=== PATIENT | female | born 1955 | race Hispanic/Latino ===

== ENCOUNTER 2018-02-13 17:00 | Emergency (ER) | payer OTHER ==
[2018-02-13 17:32] LABS: BASOPHILS % (AUTO) 0.6 % (0.0-5.0); EOSINOPHILS % (AUTO) 0.7 % (0.0-8.0); HEMATOCRIT 44.6 % (36-48); LYMPHOCYTES % (AUTO) 15.4 % (21.0-51.0); MEAN CORPUSCULAR HEMOGLOBIN 32.1 pg (27.0-33.0); MEAN CORPUSCULAR HGB CONC 35.5 g/dL (32.0-36.0); MEAN CORPUSCULAR VOLUME 90.5 fL (79-99); MONOCYTES % (AUTO) 5.3 % (3.0-13.0); PLATELET COUNT (AUTO) 232 K/uL (130-400); RED BLOOD CELL COUNT(AUTO) 4.93 MIL/uL (4.00-5.50); RED CELL DISTRIBUTION WIDTH 13.1 % (11.0-15.5); WHITE BLOOD COUNT (AUTO) 6.5 K/uL (4.8-10.8)
[2018-02-13 17:43] LABS: CREATININE 0.6 mg/dL (0.5-1.5); POTASSIUM 3.8 mmol/L (3.5-5.1)
[2018-02-13 17:52] LABS: INR 0.97 (0.85-1.15); PARTIAL THROMBOPLASTIN TIME 27.8 SEC (26.3-35.5); PROTHROMBIN TIME 10.2 SEC (9.6-11.6)
[2018-02-13 17:57] LABS: ALBUMIN 3.9 g/dL (3.5-5.0); BILIRUBIN,TOTAL 0.6 mg/dL (0.2-1.0); CREATINE KINASE MB 0.6 ng/mL (0.5-3.6); TOTAL PROTEIN, SERUM 7.4 g/dL (6.0-8.3)
[2018-02-13] MEDS ORDERED: ONDANSETRON HCL MDV 20ML 2 MG/ML VIAL ONE (18:28)
[2018-02-13] MEDS ORDERED: SODIUM CHLORIDE 0.9% 1000ML 1,000 ML IV ONE (18:28)
== END 2018-02-13 19:42 | disposition home or self-care (01) ==
LOC: EDH 17:00
DX: E86.0 Dehydration (principal); R19.7 Diarrhea, unspecified; E07.9 Disorder of thyroid, unspecified; R94.31 Abnormal electrocardiogram [ECG] [EKG]
CPT/HCPCS: 36415; 71045; 80053; 82550; 82553; 84484; 85025; 85610; 85730; 93005; 96361; 96374; 99285; J7030

== ENCOUNTER → 2018-03-11 | Outpatient (CLI) | payer OTHER ==
[~2018-03-11] MED LIST: REGADENOSON 0.4 MG/5 ML PF SYG IVP SCH
== END | disposition home or self-care (01) ==
LOC: SHCH 08:28
PROVIDERS: ATTEND Internal Medicine Cardiovascular Disease
DX: R07.9 Chest pain, unspecified (principal)
CPT/HCPCS: 78452; 93017; 96374; A9500 ×2; J2785

== ENCOUNTER → 2018-03-26 | Outpatient (CLI) | payer OTHER | END | disposition home or self-care (01) | LOC: SHCH 14:00 | PROVIDERS: ATTEND Internal Medicine Cardiovascular Disease | DX: R07.9 Chest pain, unspecified (principal) | CPT/HCPCS: 93306 ==

== ENCOUNTER → 2018-03-29 | Outpatient (CLI) | payer OTHER | END | disposition home or self-care (01) | LOC: SHCH 08:53 | PROVIDERS: ATTEND Internal Medicine Cardiovascular Disease | DX: I71.4 Abdominal aortic aneurysm, without rupture (principal) | CPT/HCPCS: 93978 ==

== ENCOUNTER 2025-02-11 20:54 | Observation (INO) | payer MEDICARE ==
[~2025-02-11] VITALS: Ht 157.5 cm; Wt 65.4 kg
[2025-02-11 21:21] LABS: BASOPHILS # (AUTO) 0.06 K/uL (0.00-0.20); BASOPHILS % (AUTO) 0.9 % (0.0-5.0); EOSINOPHILS # (AUTO) 0.22 K/uL (0.00-0.70); EOSINOPHILS % (AUTO) 3.5 % (0.0-8.0); HEMATOCRIT 40.2 % (36-48); IMMATURE GRANULOCYTE ABSOLUTE 0.02 K/uL (0-1); LYMPHOCYTES # (AUTO) 2.4 K/uL (1.0-4.8); LYMPHOCYTES % (AUTO) 38.4 % (21.0-51.0); MEAN CORPUSCULAR HEMOGLOBIN 31.3 pg (27.0-33.0); MEAN CORPUSCULAR HGB CONC 34.3 g/dL (32.0-36.0); MEAN CORPUSCULAR VOLUME 91.2 fL (79-99); MONOCYTES # (AUTO) 0.4 K/uL (0.1-1.0); MONOCYTES % (AUTO) 6.1 % (3.0-13.0); NEUTROPHILS # (AUTO) 3.2 K/uL (1.8-7.7); NEUTROPHILS % (AUTO) 50.8 % (40.0-77.0); PLATELET COUNT (AUTO) 210 K/uL (130-400); RED BLOOD CELL COUNT(AUTO) 4.41 MIL/uL (4.00-5.50); RED CELL DISTRIBUTION WIDTH 12.1 % (11.0-15.5); WHITE BLOOD COUNT (AUTO) 6.4 K/uL (4.8-10.8)
--- NOTE | 2025-02-11 21:21 | ERN ---
ED Note History of Present Illness Stated Complaint: C/O DIZZINESS WITH CHEST TIGHTNESS. Chief Complaint: Dizzy/Light Headed Time Seen by MD: 21:05 Dictation: This is a 69-year-old female who presented to the emergency room with complaints of severe dizziness and chest tightness. Apparently she was seen by PCP and evaluated and was instructed to come to the emergency room should her symptoms persist hence she came in No diaphoresis syncopal episode the chest tightness is mostly in the upper chest and she also stated that her left arm feels heavy. All these symptoms have been going on for more than 3-6 months. She admits to lot of stress at home due to family issues Temperature 97.6 pulse 81 respirations 20 blood pressure 132/80 pulse oximetry 100% on room air Her chronic medical problems include gastritis, gastroesophageal reflux disease, hypercholesterolemia Allergies: Coded Allergies: No Known Drug Allergies (Unverified Allergy, Unknown, 03/05/18) Past Medical History Past Medical History: GERD, High Cholesterol, Other Additional Past Medical Hx: GASTRITIS; SEASONAL ALLERGIES Surgical History: None Family History: Negative Social History: Negative History: Not Applicable RN Note Reviewed/Agreed w/PFSH: Yes Review of System Dictation Constitutional: Negative for fever,chills, and weight loss Eyes: Negative for injury, pain,redness, and discharge ENT: Negative for injury,pain or swelling Cardiovascular: Positive for chest pain, denied palpitations, and edema Respiratory: Negative for shortness of breath, cough, and wheezing, Abdomen/GI: Negative for abdominal pain, nausea, vomiting, diarrhea, and constipation Back: Negative for injury and pain : Negative for injury, bleeding and discharge MS/Extremity: Negative for injury and deformity Skin: Negative for rash, and discoloration Neuro: Negative for headache, weakness, numbness, tingling, and seizure Psych: Negative for suicide ideation, homicidal ideation, and hallucinations Initial Vital Sign VS Vital Signs Date Time Temp Pulse Resp B/P (MAP) Pulse Ox O2 Delivery O2 Flow Rate FiO2 02/11/25 20:56 97.5 81 20 132/80 100 Room Air Physical Exam Dictation General: awake, alert, NAD generally anxious Head/Face: Normocephalic, atraumatic Eyes: PERRL, EOMI, vision at baseline ENT: oral cavity clear, TMs clear, no signs of infection Neck: Trachea midline, supple, no nuchal rigidity Cardiovascular: RRR, normal S1/S2, No MRGs, no JVD Respiratory: CTAB, no respiratory distress, No rales or wheezes Abdomen: Soft, non-tender, non-distended, normal bowel sounds, no guarding or rebound. Skin: Warm, dry, normal turgor, no rash MS/Extremity: Pulses equal, no cyanosis, neurovascular intact, FROM Neuro: COAx4, GCS 15, strength 5/5, CN 2-12 intact, normal cerebellar exam, normal gait, Psych: Normal behavior, mood, and affect normal Extremities-trace edema without any palpable cords, Homans sign is negative Results (Laboratory/Radiology) Laboratory/Radiology Laboratory Tests Test 02/11/25 21:15 White Blood Count 6.4 K/uL (4.8-10.8) Red Blood Count 4.41 MIL/uL (4.00-5.50) Hemoglobin 13.8 g/dL (12.0-16.0) Hematocrit 40.2 % (36-48) Mean Corpuscular Volume 91.2 fL (79-99) Mean Corpuscular Hemoglobin 31.3 pg (27.0-33.0) Mean Corpuscular Hemoglobin Concent 34.3 g/dL (32.0-36.0) Red Cell Distribution Width 12.1 % (11.0-15.5) Platelet Count 210 K/uL (130-400) Mean Platelet Volume 9.8 fL (7.5-10.5) Immature Granulocyte % (Auto) 0.3 % (0-1) Neutrophils (%) (Auto) 50.8 % (40.0-77.0) Lymphocytes (%) (Auto) 38.4 % (21.0-51.0) Monocytes (%) (Auto) 6.1 % (3.0-13.0) Eosinophils (%) (Auto) 3.5 % (0.0-8.0) Basophils (%) (Auto) 0.9 % (0.0-5.0) Neutrophils # (Auto) 3.2 K/uL (1.8-7.7) Lymphocytes # (Auto) 2.4 K/uL (1.0-4.8) Monocytes # (Auto) 0.4 K/uL (0.1-1.0) Eosinophils # (Auto) 0.22 K/uL (0.00-0.70) Basophils # (Auto) 0.06 K/uL (0.00-0.20) Absolute Immature Granulocyte (auto 0.02 K/uL (0-1) Nucleated Red Blood Cells 0.0 % (0.0-0.19) Sodium Level 139 mmol/L (136-145) Potassium Level 3.4 mmol/L (3.5-5.1) L Chloride Level 105 mmol/L (101-111) Carbon Dioxide Level 29 mmol/L (21-32) Blood Urea Nitrogen 17 mg/dL (7-18) Creatinine 0.8 mg/dL (0.5-1.0) Glomerular Filtration Rate Calc 80 mL/min (>90) Random Glucose 127 mg/dL (70-105) H Total Calcium 8.7 mg/dL (8.5-10.1) Total Creatine Kinase 60 U/L (21-232) # Troponin I High Sensitivity 5.7 ng/L (4-50) B-Type Natriuretic Peptide 30 pg/mL (0-100) Labs Reviewed?: Yes EKG Comment: Twelve lead EKG done on 02/11/2025 at 8:57 p.m. showed a heart rate of 70, PA in terval 145, QRS 139, QT/QTC 439/476 Impression normal sinus rhythm with left bundle branch block than the appearance of ST elevations due to severe intraventricular conduction delay. EKG Rhythm strip-normal sinus rhythm with left bundle branch block and i ntraventricular conduction delay. Interpreted by ER MD Dr. Celis Ultrasound Comment: Echocardiogram done in 2018 Left ventricle systolic function is low normal. The Ejection Fraction is 50-55%. Septal motion consistent with conduction abnormality. The left atrium size is normal. The aortic valve is normal in structure and function. The mitral valve is normal in structure and function. The pericardium appears normal. DICTATED BY: EVELIO ALVES II, MD DATE: 03/26/18 1414 ELECTRONICALLY SIGNED BY: EVELIO ALVES II, MD DATE: 03/28/18 0823 ED Course ED Course Orders Procedure Category Date Status Time 12 Lead Ekg Tracing- EKG 02/11/25 Logged Technical 21:01 Vital Signs Per CPOE 02/11/25 Transmitted Routine 21:03 B-Type Natriuretic LAB 02/11/25 Complete Peptide 21:03 Chest 1vw RAD 02/11/25 Taken 21:03 Oxygen By Nc/Pulse Ox CPOE 02/11/25 Transmitted 21:03 Maintain Iv CPOE 02/11/25 Transmitted 21:03 Iv Insertion CPOE 02/11/25 Transmitted 21:03 Cardiac Monitoring CPOE 02/11/25 Transmitted 21:03 Pulse Oximetry With CPOE 02/11/25 Transmitted Vs And Prn 21:03 Cbc With Differential LAB 02/11/25 Complete 21:03 Activity: Br W/Brp CPOE 02/11/25 Transmitted With Assist 21:03 Urinalysis Profile LAB 02/11/25 In Process 21:03 Basic Metabolic Panel LAB 02/11/25 Complete 21:03 Cardiac Panel LAB 02/11/25 Complete 21:15 Vital Signs Date Time Temp Pulse Resp B/P (MAP) Pulse Ox O2 Delivery O2 Flow Rate FiO2 02/11/25 20:56 97.5 81 20 132/80 100 Room Air We will perform diagnostic labs, advanced imaging and administer medications according to the patient's complaint. Once the results are available, will review and personally interpreted the labs to rule out any acute life- threatening emergency the trach require immediate intervention and treatment. I will then re-evaluate the patient after treatment and diagnostic exams have return to determine whether the patient requires any further testing, can safely be discharged home or need further admission to hospital for additional treatment and evaluation. Reviewed labs CBC is with a normal limits BNP 7 shows a potassium of 3.4 glucose 127 brain natriuretic peptide is 30 troponins 1st set is negative. Chest x-ray shows no acute infiltrate some chronic interstitial markings. Being postmenopausal, with an abnormal EKG-left bundle branch block was there in her old EKG but never had a cardiac evaluation done. I recommended admission to the hospital as the symptoms have been going on for months and she needed to be evaluated for ischemic heart disease She was agreeable. 11:57 p.m. patient accepted by [facility] mid-level provider for hospitalist group for admission and further management HEART Score Response (Comments) Value History: Low suspicion (0) 0 EKG: Repolarization changes 1 Age: > 65yrs (+2) 2 Risk Factors: 1-2 risk factors (+1) 1 Initial Troponin: Normal limit (0) 0 HEART Score Risk: Low Risk for MACE (1-3) Total 4 Medical Decision Making MDM MDM: Differential diagnosis: Severe dizziness with chest tightness-could be cardiac, dehydration, cervical spondylosis, benign positional vertigo Rationale: Tests considered and ordered secondary to shared decision making include: labs, ECG and radiology Previous outside records reviewed: Old ER visits. Risk of complication and/or morbidity or mortality of patient management: None Medications-Per medication reconciliation Need for hospitalization: Patient does meet criteria for hospitalization. Need for emergency major/minor surgery: No There are no social concerns with this patient. Prescription drug management Prescriptions will include symptomatic care Patient's prior external medical records from other ER visits were reviewed by me as indicated. Prior testing and results from previous visits were reviewed. Prior tests were taken into account with medical decision making and resource utilization, independent historian/historians were used to obtain complete medical history. I independently interpreted the test that were performed, results were reviewed by me and considered findings on radiology if ordered. Medical management and examination interpretation discussions were had by me with other qualified healthcare professionals as indicated for the patient's care. Problem List Problem List: (1) Unstable angina (2) Abnormal EKG (3) Left bundle branch block DX & DISP Disposition: Inpatient Decision to Admit Time: 23:55 Departure Impression: Primary Impression: Unstable angina Additional Impressions: Abnormal EKG, Left bundle branch block Condition: Stable Additional Instructions: Patient was informed of all the diagnostic labs and procedures conducted in the emergency room today and demonstrated understanding of the results. I personally reviewed and interpreted all the diagnostic exams performed in the ER today. The patient will be admitted to the hospital for further treatment and evaluation. Disposition-admit to facility Condition-stable/guarded Course-uncertain at this time Pain status-decreased Assessment-exam unchanged Admission Certification- I certify that the patients status is appropriate and is based on my best clinical judgment and the patient's condition as documented in the medical records Referrals: NESHA JO DO (PCP) DEBBY CELIS MD Feb 11, 2025 21:21
[2025-02-11 21:40] LABS: B-TYPE NATRIURETIC PEPTIDE 30 pg/mL (0-100); CREATININE 0.8 mg/dL (0.5-1.0); POTASSIUM 3.4 mmol/L (3.5-5.1)
[2025-02-12] VITALS (7 sets, daily range): BP systolic 120–134; BP diastolic 66–81; PULSE 71–87; RESP 18–23; TEMP 97.3–98.7; O2SAT 96–99
[2025-02-12 00:02] LABS: APPEARANCE,URINE CLEAR (CLEAR); BILIRUBIN,URINE NEGATIVE (NEGATIVE); COLOR,URINE LIGHT-YELLOW (YELLOW); GLUCOSE, URINE (UA) NEGATIVE (NEGATIVE); KETONES,URINE NEGATIVE (NEGATIVE); LEUKOCYTE ESTERASE ,URINE NEGATIVE Leu/uL (NEGATIVE); NITRATE,URINE NEGATIVE (NEGATIVE); OCCULT BLOOD,URINE NEGATIVE (NEGATIVE); PROTEIN,URINE NEGATIVE (NEGATIVE); UROBILINOGEN,URINE 0.2 mg/dL (0.2-1.0)
[2025-02-12 00:08] LABS: ADD UA MICROSCOPIC NO
[2025-02-12] MEDS: ASPIRIN 325MG TAB PO ONE (00:34)
[2025-02-12] MEDS: 0.9%NACL 1000ML 1,000 ML IV ONE (00:53)
--- NOTE | 2025-02-12 00:59 | HP ---
[facility] Date of Service: Feb 12, 2025 Time of Service: 00:59 PCP: Dinesh BEST HISTORY OF PRESENT ILLNESS: This is a 69 year old female with past medical history hyperlipidemia,GERD,Gastroparesis and hypothyroidism who present to the ED for complaints of on and off severe dizziness and chest tightness that has been on going for the past 4 months and no other associated symptoms.Patient reports that she has been dealing with a lot of stress lately that she had to transfer her mother to a jail and that she has been taking care of her and that she feels guilty as well and this caused her so much mental stress.Today she has chest pain which she described as tightness and left arm felt heavy she said so she went to see her PCP and did an EKG and was told to come to the ED if if symptoms persist,thus prompted this admission.Patient states she has no cardiac work up and was seen by a solar sales representative and assessor before . Seen and examined patient in the ER awake,alert,coherent and ambulatory.Patient denies headache,fever,chills,nausea,vomiting palpitation and shortness of breath.Patient denies focal neuro deficit. Vital signs temperature 97.5, heart rate 81, blood pressure 132/80 saturation 100% on room air. Labs CBC unremarkable. Potassium 3.4, glucose 127 troponin 5.7 to 8.1 BNP 30. Urinalysis normal . ECG result revealed normal sinus rhythm heart rate 70 with left bundle branch block and intraventricular conduction delay. chest x-ray result is still pending at this time. While in the ER patient received aspirin 325 mg and started on NS at 1:25 a.m. mL/hour. We will admit patient for further medical management. REVIEW OF SYSTEMS CONSTITUTIONAL: Denies fevers, chills, or night sweats. No unintentional weight loss reported. NEUROLOGICAL: Denies headache, amaurosis fugax, motor weakness, sensory deficit, vertigo/spinning sensation, gait abnormalities, or tremors. ENT: No hearing loss, otalgia, otorrhea, rhinitis, rhinorrhea, hoarseness, or sore throat. CARDIOVASCULAR: Complain of chest pain Denies dyspnea on exertion, orthopnea, paroxysmal nocturnal dyspnea, palpitations, life-threatening arrhythmias, claudication. PULMONARY: Denies any shortness of breath, cough, phlegm/sputum, hemoptysis, pleuritic chest pain. SLEEP: Denies morning headaches, daytime somnolence or napping. Denies difficulty falling asleep, staying asleep, waking from sleep. Denies knowledge of snoring. GASTROINTESTINAL: Denies any type of dysphagia to either liquids or solids. Denies nausea, vomiting, pyrosis, early satiety, abdominal pain, diarrhea, constipation, or changes in stool consistency or caliber. Denies coffee-ground emesis, hematemesis, hematochezia, or melanotic stools. GENITOURINARY: Denies frequency, urgency, nocturia, hematuria or incontinence (Storage/Irritative symptoms.) Low urinary stream, straining to void, urinary intermittency or hesitancy, splitting of the voiding stream, terminal dribbling. ENDOCRINOLOGIC: Denies polyuria, polydipsia, polyphagia or heat/cold intolerances. HEMATOLOGIC: Denies thrombophilia/previous clots, or coagulopathy/bleeding disorders. ONCOLOGIC: Denies personal history of malignancy. DERMATOLOGIC: Denies rashes or pruritus. PSYCHIATRIC: Denies any suicidal or homicidal ideation. Denies hallucinations. PAST MEDICAL HISTORY: [ Hyperlipidemia hypothyroidism GERD gastroparesis] PAST SURGICAL HISTORY: [ Patient denies] PAST SOCIAL HISTORY: [Patient lives with . Patient denies alcohol tobacco and recreational drug use ] FAMILY HISTORY: [ Noncontributory ] Coded Allergies: No Known Drug Allergies (Unverified Allergy, Unknown, 03/05/18) PHYSICAL EXAM GENERAL APPEARANCE: The patient is awake, alert, and oriented, in no acute cardiopulmonary distress. NEUROLOGICAL: Cranial nerves II-XII grossly intact. Motor is 5/5 in bilateral upper and lower extremities proximal to distal. No sensory deficits. HEENT: Face is symmetric. Pupils are equal and reactive. Extraocular movements are intact. NECK: Supple. No JVD. No thyromegaly. No submental, submandibular, pre- /postauricular, occipital or supraclavicular lymphadenopathy. CHEST: Normal chest expansion. No Telemetry. LUNGS: Absence of any rales, rhonchi or any wheezing. CARDIOVASCULAR: Regular. S1 and S2 normal. No appreciable rubs, murmurs or gallops. ABDOMEN: Soft, nontender, and nondistended. There is no rebound, voluntary guarding, or rigidity. : Deferred. No [place]. EXTREMITIES: Non-edematous and not cyanotic. No clubbing. Good capillary refill. SKIN: No skin breakdown. Vital Sign (Last 24 Hours) 02/11/25 20:56 Temp 97.5 Pulse 81 Resp 20 B/P (MAP) 132/80 Pulse Ox 100 O2 Delivery Room Air LABS: Laboratory: Test 02/12/25 00:05 02/11/25 23:40 02/11/25 21:15 Range/Units Total Creatine Kinase 58 21-232 U/L Troponin I High Sensitivity 8.1 4-50 ng/L B-Type Natriuretic Peptide 26 0-100 pg/mL Urine Color LIGHT-YELLOW YELLOW Urine Appearance CLEAR CLEAR Urine pH 7.0 5.0-8.0 Urine Specific [place] 1.019 1.001-1.031 Urine Protein NEGATIVE NEGATIVE mg/dL Urine Glucose (UA) NEGATIVE NEGATIVE mg/dL Urine Ketones NEGATIVE NEGATIVE mg/dL Urine Occult Blood NEGATIVE NEGATIVE Urine Nitrate NEGATIVE NEGATIVE Urine Bilirubin NEGATIVE NEGATIVE mg/dL Urine Urobilinogen 0.2 0.2-1.0 mg/dL Urine Leukocyte Esterase NEGATIVE NEGATIVE Elaine/uL White Blood Count 6.4 4.8-10.8 K/uL Red Blood Count 4.41 4.00-5.50 MIL/uL Hemoglobin 13.8 12.0-16.0 g/dL Hematocrit 40.2 36-48 % Mean Corpuscular Volume 91.2 79-99 fL Mean Corpuscular Hemoglobin 31.3 27.0-33.0 pg Mean Corpuscular Hemoglobin Concent 34.3 32.0-36.0 g/dL Red Cell Distribution Width 12.1 11.0-15.5 % Platelet Count 210 130-400 K/uL Mean Platelet Volume 9.8 7.5-10.5 fL Immature Granulocyte % (Auto) 0.3 0-1 % Neutrophils (%) (Auto) 50.8 40.0-77.0 % Lymphocytes (%) (Auto) 38.4 21.0-51.0 % Monocytes (%) (Auto) 6.1 3.0-13.0 % Eosinophils (%) (Auto) 3.5 0.0-8.0 % Basophils (%) (Auto) 0.9 0.0-5.0 % Neutrophils # (Auto) 3.2 1.8-7.7 K/uL Lymphocytes # (Auto) 2.4 1.0-4.8 K/uL Monocytes # (Auto) 0.4 0.1-1.0 K/uL Eosinophils # (Auto) 0.22 0.00-0.70 K/uL Basophils # (Auto) 0.06 0.00-0.20 K/uL Absolute Immature Granulocyte (auto 0.02 0-1 K/uL Nucleated Red Blood Cells 0.0 0.0-0.19 % Sodium Level 139 136-145 mmol/L Potassium Level 3.4 L 3.5-5.1 mmol/L Chloride Level 105 101-111 mmol/L Carbon Dioxide Level 29 21-32 mmol/L Blood Urea Nitrogen 17 7-18 mg/dL Creatinine 0.8 0.5-1.0 mg/dL Glomerular Filtration Rate Calc 80 >90 mL/min Random Glucose 127 H 70-105 mg/dL Total Calcium 8.7 8.5-10.1 mg/dL Current Medications Medications (Trade) Dose Ordered Sig/Amilcar Route PRN Reason Start Time Stop Time Status Last Admin Dose Admin Nitroglycerin (Nitrostat) 0.4 mg Q5M PRN SL CHEST PAIN 02/12/25 00:00 DIAGNOSTICS / RADIOLOGY: [ ] ASSESSMENT: Unstable angina POA Hyperlipidemia POA Gastroparesis POA Hypothyroidism POA GERD POA PLAN: We will admit patient in medical telemetry We will start on heart healthy diet We will start aspirin 81 mg p.o. daily We will start on Famotidine 20 mg p.o. bid for GI prophylaxis We will replace electrolytes as needed per protocol We will add prn medication for fever,pain,cough , nausea and vomiting We will reconcile home meds once medlist available We will trend troponin q.6 x2 We will request labs in am We will seek Cardiology consultation Further orders to follow depending on above results Case discussed with attending physician and came up with above treatment and plan of care. ADVANCED CARE PLANNING 1. Which of the following were discussed? Hospice Care - No Therapeutic options - Yes Advance Directives - No Other discussions - 2. Discussed with who? Patient 3. Voluntary nature of this service was explained to the patient? Yes 4. Amount of time spent - ___24____ 5. Reviewed by Physician? (if this service was performed by NPP) Yes Patient seen and examined by me. Agree with note by DRAPERY AND UPHOLSTERY ESTIMATOR SEE ADDITIONAL ORDERS PER CHART DISCUSSED WITH NURSING STAFF MACARENA PAN BUILDING WRECKER Feb 12, 2025 00:59
[2025-02-12] MEDS ORDERED: acetaMINOPHEN 325 MG TAB PO PRN (01:00)
[2025-02-12] MEDS ORDERED: PoTASSium chloRIDE 20MEQ/100ML 100 ML IV PRN (01:00)
[2025-02-12] MEDS ORDERED: NITROGLYCERIN 0.4 MG SL TAB SL PRN ×2 (01:00)
[2025-02-12] MEDS ORDERED: PoTASSium chl 10% ELIXIR 20MEQ 20 MEQ/15 ML UDCUP PO PRN (01:00)
[2025-02-12] MEDS ORDERED: PoTASSium chloRIDE 20MEQ ER 20 MEQ ERTAB PO PRN (01:00)
[2025-02-12] MEDS ORDERED: ondanSETRON 4MG INJ IV PRN (01:00)
[2025-02-12] MEDS ORDERED: MAGNESIUM 2GM PREMIX 50ML 50 ML IV PRN (01:00)
--- NOTE | 2025-02-12 07:42 | EKG ---
[facility] Test Date: 2025-02-11 Test Time: 20:57:15 Pat Name: TASIA SHERWOOD Department: EDHIP Patient [place]: [facility] [id number] Room: ED 10 Gender: F Biscuit Maker: [id number] [phone] [id number] Requested By: DEBBY OLIVER Order Number: [id number] Reading MD: Adal Raymond Measurements Intervals [place] Rate: 70 P: 23 AR: 146 QRS: -10 QRSD: 139 T: 97 QT: 439 QTc: 476 Interpretive Statements Sinus rhythm Left bundle branch block ST elevation secondary to IVCD Compared to ECG 02/13/2018 17:10:32 Intraventricular conduction delay now present ST (T wave) deviation now present Sinus tachycardia no longer present Ventricular premature complex(es) no longer present Electronically Signed On 02-12-2025 20:51:39 CDT by Adal Raymond Please click the below link to view image of tracing.
[2025-02-12 08:08] LABS: BASOPHILS # (AUTO) 0.05 K/uL (0.00-0.20); BASOPHILS % (AUTO) 0.9 % (0.0-5.0); EOSINOPHILS # (AUTO) 0.24 K/uL (0.00-0.70); EOSINOPHILS % (AUTO) 4.4 % (0.0-8.0); HEMATOCRIT 40.4 % (36-48); IMMATURE GRANULOCYTE ABSOLUTE 0.02 K/uL (0-1); LYMPHOCYTES # (AUTO) 1.9 K/uL (1.0-4.8); LYMPHOCYTES % (AUTO) 33.8 % (21.0-51.0); MEAN CORPUSCULAR HEMOGLOBIN 31.1 pg (27.0-33.0); MEAN CORPUSCULAR HGB CONC 33.9 g/dL (32.0-36.0); MEAN CORPUSCULAR VOLUME 91.8 fL (79-99); MONOCYTES # (AUTO) 0.4 K/uL (0.1-1.0); MONOCYTES % (AUTO) 6.5 % (3.0-13.0); PLATELET COUNT (AUTO) 213 K/uL (130-400); RED CELL DISTRIBUTION WIDTH 12.2 % (11.0-15.5); WHITE BLOOD COUNT (AUTO) 5.5 K/uL (4.8-10.8)
[2025-02-12 08:38] LABS: HEMOGLOBIN A1C 5.6 % (4.0-6.0)
[2025-02-12 08:41] LABS: ALBUMIN 3.6 g/dL (3.5-5.0); BILIRUBIN,TOTAL 0.5 mg/dL (0.2-1.0); CREATININE 0.7 mg/dL (0.5-1.0); MAGNESIUM 2.4 mg/dL (1.80-2.40); POTASSIUM 4.2 mmol/L (3.5-5.1); THYROID STIMULATING HORMONE 3.44 uIU/mL (0.36-3.74); TOTAL PROTEIN, SERUM 6.9 g/dL (6.0-8.3)
[2025-02-12] MEDS: ASPIRIN 81 MG EC TAB PO SCH (09:00)
--- NOTE | 2025-02-12 09:17 | HMCIMG ---
Exam Type: CHEST 1VW Clinical Information: CHEST PAIN Comparison: None Findings: The lungs are clear of infiltrates. The heart is normal in size. The bony and soft tissue structures of the chest are unremarkable. Impression: Clear lungs.
[2025-02-12] MEDS: FAMOTIDINE 20MG TAB PO SCH (09:18)
[2025-02-12 09:28] LABS: ERYTHROCYTE SEDIMENTATION RATE 12 MM/HR (0-30)
--- NOTE | 2025-02-12 09:43 | CONS ---
[facility] CARDIOLOGY CONSULTATION REPORT Cardiology consultation note dictated for Adal Montgomery MD Primary postal service sectional center manager: Kenneth Mott MD Date Patient Seen: Feb 12, 2025 Requesting Physician: ESTEPHANIA Pulido Reason for Consultation: Chest pain History of Present Illness: This is a 69-year-old female with a past medical history of hyperlipidemia, hypothyroidism, chronic left bundle branch block, fixed apical thinning with no reversible ischemia by Cardiolite scan in 03/2018, 2D echo in 03/2018 with an EF of 50-55%, coronary calcium score of 0 in 04/2018, GERD, and gastroparesis who presented to the ED with complaints of intermittent chest discomfort for approximately 4 months. Cardiology has been consulted for recommendations. The patient states over the last 4 months she has under gone an increase in stress and began to have anterior chest discomfort described as pressure-like. Episodes can last 1-2 minutes and at times can be accompanied by diaphoresis and can be aggravated with deep inspiration. Episodes can occur 1-2 times per week with or without activity. Cardiac enzymes have been negative x4. EKG demonstrated sinus rhythm with a heart of 70 beats per minute, with the LBBB. Past Medical History: As per HPI and summarized below Past Surgical History: None Family History: The patient's mother had hypertension, diabetes mellitus type 2, CVA, and heart disease. The patient's father had hyperlipidemia and PAD. Social History: The patient lives with family. Habits: The patient denies alcohol, tobacco, or illicit drug use. Home Meds: Home medications pending reconciliation Current Meds: Current Medications Medications Dose Ordered Sig/Amilcar Start Time Stop Time Status Last Admin Nitroglycerin 0.4 mg Q5M PRN 02/12/25 00:00 Acetaminophen 650 mg Q6H PRN 02/12/25 01:00 03/14/25 00:59 Acetaminophen 650 mg Q4H PRN 02/12/25 01:00 03/14/25 00:59 Ondansetron HCl 4 mg Q6H PRN 02/12/25 01:00 03/14/25 00:59 Nitroglycerin 0.4 mg PROTOCOL PRN 02/12/25 01:00 03/14/25 00:59 Famotidine 20 mg BID 02/12/25 09:00 03/14/25 08:59 02/12/25 09:18 Magnesium Sulfate 50 ml @ 0 mls/hr PROTOCOL PRN 02/12/25 01:00 03/14/25 00:59 Potassium Chloride 100 ml @ 100 mls/hr AD PRN 02/12/25 01:00 03/14/25 00:59 Potassium Chloride 20 meq AD PRN 02/12/25 01:00 03/14/25 00:59 Potassium Chloride 20 meq AD PRN 02/12/25 01:00 03/14/25 00:59 Aspirin 81 mg DAILY 02/12/25 09:00 03/14/25 08:59 Review of Systems: CONST: No fever, fatigue, or weight changes. EYES: No recent vision problems. ENT: No congestion, ear pain, or sore throat. C/V: No chest pain, palpitations, or edema. RESP: No cough, congestion, wheezing or shortness of breath. GI: No abdominal pain, nausea, vomiting, constipation, or diarrhea. : No incontinence or dysuria. SKIN: No rash. NEURO: No headache, focal numbness or weakness, dizziness, or seizures. PSYCH: No depression or anxiety. HEME: No abnormal bruising or bleeding. LYMPH: No swollen glands. Physical Examination: GENERAL: No acute distress. HEAD: Normal with no signs of head trauma. EYES: PERRLA, EOMI, conjunctiva and sclera normal. ENT: Hearing grossly intact, normal oropharynx. NECK: Supple without JVD. There is no tenderness, lymphadenopathy, or masses. No thyromegaly. Normal carotid upstrokes without bruits. LUNGS: Clear breath sounds bilaterally. No wheezes, or rhonchi. HEART: Normal rate and rhythm. Normal S1 and S2 without murmurs, gallop or rub. VASC: Peripheral pulses +2 bilaterally. ABD: Bowel sounds normal, soft, nontender, no masses, no organomegaly. No audible bruits. : Not examined LYMPH: No lymphadenopathy noted. EXT: No clubbing, cyanosis or edema. SKIN: No rashes or lesions noted. NEURO: Awake, alert, and oriented x3. No focal sensory or strength deficits noted. Vital Signs (last 8hr) Date Time Temp Pulse Resp B/P (MAP) Pulse Ox O2 Delivery O2 Flow Rate FiO2 02/12/25 09:19 99 Room Air* 0 21 02/12/25 08:00 98.1 71 20 130/66 99 Room Air 02/12/25 03:58 98.2 63 16 147/68 99 Room Air* 0 21 Laboratory: Hematology Labs: Test 02/12/25 07:57 Range/Units White Blood Count 5.5 4.8-10.8 K/uL Red Blood Count 4.40 4.00-5.50 MIL/uL Hemoglobin 13.7 12.0-16.0 g/dL Hematocrit 40.4 36-48 % Mean Corpuscular Volume 91.8 79-99 fL Mean Corpuscular Hemoglobin 31.1 27.0-33.0 pg Mean Corpuscular Hemoglobin Concent 33.9 32.0-36.0 g/dL Red Cell Distribution Width 12.2 11.0-15.5 % Platelet Count 213 130-400 K/uL Mean Platelet Volume 9.8 7.5-10.5 fL Immature Granulocyte % (Auto) 0.4 0-1 % Neutrophils (%) (Auto) 54.0 40.0-77.0 % Lymphocytes (%) (Auto) 33.8 21.0-51.0 % Monocytes (%) (Auto) 6.5 3.0-13.0 % Eosinophils (%) (Auto) 4.4 0.0-8.0 % Basophils (%) (Auto) 0.9 0.0-5.0 % Neutrophils # (Auto) 3.0 1.8-7.7 K/uL Lymphocytes # (Auto) 1.9 1.0-4.8 K/uL Monocytes # (Auto) 0.4 0.1-1.0 K/uL Eosinophils # (Auto) 0.24 0.00-0.70 K/uL Basophils # (Auto) 0.05 0.00-0.20 K/uL Absolute Immature Granulocyte (auto 0.02 0-1 K/uL Nucleated Red Blood Cells 0.0 0.0-0.19 % Erythrocyte Sedimentation Rate 12 0-30 MM/HR Chemistry Labs: Test 02/12/25 07:57 02/12/25 00:05 Range/Units Sodium Level 141 136-145 mmol/L Potassium Level 4.2 3.5-5.1 mmol/L Chloride Level 107 101-111 mmol/L Carbon Dioxide Level 30 21-32 mmol/L Blood Urea Nitrogen 15 7-18 mg/dL Creatinine 0.7 0.5-1.0 mg/dL Glomerular Filtration Rate Calc 94 >90 mL/min Random Glucose 95 70-105 mg/dL Hemoglobin A1c 5.6 4.0-6.0 % Estimated Average Glucose (eAG) 114 70-126 mg/dL Total Calcium 8.7 8.5-10.1 mg/dL Magnesium Level 2.40 1.80-2.40 mg/dL Total Bilirubin 0.5 0.2-1.0 mg/dL Aspartate Amino Transf (AST/SGOT) 16 10-37 U/L Alanine Aminotransferase (ALT/SGPT) 18 12-78 U/L Alkaline Phosphatase 112 50-136 U/L Total Creatine Kinase 48 21-232 U/L Troponin I High Sensitivity 6 4-50 ng/L Total Protein 6.9 6.0-8.3 g/dL Albumin 3.6 3.5-5.0 g/dL Triglycerides Level 109 30-200 mg/dL Cholesterol Level 195 <200 mg/dL LDL Cholesterol 110 H 0-99 mg/dL HDL Cholesterol 68 35-85 mg/dL Thyroid Stimulating Hormone (TSH) 3.44 0.36-3.74 uIU/mL B-Type Natriuretic Peptide 26 0-100 pg/mL Diagnostics / Radiology: Impression and Plan: Chest pain Hyperlipidemia Hypothyroidism Chronic left bundle branch block Fixed apical thinning with no reversible ischemia by Cardiolite scan in 03/2018 2D echo in 03/2018 with an EF of 50-55% Coronary calcium score of 0 in 04/2018 GERD Gastroparesis Chest pain Cardiac enzymes have been negative x4 EKG demonstrated sinus rhythm with a heart of 70 beats per minute, with the LBBB -Further recommendations pending discussion with Dr. Montgomery Addendum: The patient has presented with chest pain worrisome for angina. Her enzymes show no acute coronary syndrome. Her EKGs not very helpful as it demo nstrates a left bundle branch block. We have discussed options we will proceed with a 2D echocardiogram and Lexiscan Cardiolite stress test. We will review results when available. ATTESTATION BY PHYSICIAN I have seen and examined the patient. I reviewed the documentation, medical decision making, and treatment plan as noted by the mid-level provider above. I agree with the findings and plan of care. ADAL MONTGOMERY MD, VALERIE L FNP Feb 12, 2025 09:43 ADAL MONTGOMERY MD Feb 12, 2025 11:24
--- NOTE | 2025-02-12 10:13 | NUR ---
DCP:HOME Pt lives at home with her [phone]. Pt is retired and sates she remains very actives and independent. Pt requires no assistance with ADLS, home management or meal prep. Pt uses no in [place] [facility] care services, HH or HD. PCP is Kaye Araiza NP, and uses [facility] in [place] for rx. Pt denies dc needs and will return home with family Addendum: 02/12/25 at 1015 by TONE MYERS Amended: Links added.
[2025-02-12] MEDS ORDERED: REGADENOSON 0.4 MG/5 ML PF SYG IVP ONE (11:35)
--- NOTE | 2025-02-12 14:39 | HMCSR ---
APPROVED REPORT EXAM: Two-dimensional and M-mode echocardiogram with Doppler and color Doppler. INDICATION ICD: Chest pain R07.9 2D Dimensions RVDd3.1 cmLVEF(%)51.4 (>50%)LVED Vol(simp.)46.0 mL IVSd0.7 (0.7-1.1cm)FS(%)26 %LVES Vol(simp.)26.0 mL LVDd4.4 (3.8-5.6cm)LA (2D)3.5 (1.6-4.0cm)LVEF(%, simp.)44 % PWd0.7 (0.7-1.1cm)Ao Root(2D)2.5 (2.0-3.7cm) IVSs0.8 cmLVOT diam2.0 (1.8-2.4cm) LVDs3.2 (2.5-4.0cm)IVC diam1.4 cm PWs1.6 cm Deformation Strain Apical 4-10.3 % Apical 2-12.1 % Apical 3-11.7 % Global Strain-11.4 % M-Mode Dimensions EPSS1.2 cm LA (MM)3.6 (1.6-4.0cm) Ao Root(MM)2.0 (2.0-3.7cm) Aortic Valve AoV Vmax1.0 m/Nataliia Peak GR3.7 mmHgLVOT Vmax0.8 m/s AoV VTI0.2 mAo Mean GR2.2 mmHgLVOT VTI0.15 m MICK (VMAX)2.25 cm2AVA (VTI) 2.2 cm2 Mitral Valve MV E Vmax54.6 cm/sDECEL Zqrf809 ms MV A Vmax75.0 cm/sP 1/2 T54 ms E/A ratio0.7MVA (PHT)4.1 cm2 TDI E/E' Noikuu15.2E/E' Fkzxpck09.3 Medial E' Peak V3.60 cm/sLateral E' Peak V2.99 cm/s Pulmonary Valve PV Vmax0.8 m/sPV Mean GR1.3 mmHg PV Peak GR2.3 mmHg Tricuspid Valve TR Vmax2.1 m/sRVSP17.2 mmHg TR Peak GR19.0 mmHg Left Ventricle The left ventricle is normal size. Abnormal GLS -11.0%. There is normal left ventricular wall thickne ss. LVEF is 40-45%. Stage I diastolic dysfunction. Right Ventricle The right ventricle is normal size. The right ventricular systolic function is normal. Atria The left atrium size is normal. The right atrium size is normal. Aortic Valve The aortic valve is normal in structure. No aortic regurgitation is present. There is no aortic valvu lar stenosis. Mitral Valve The mitral valve is normal in structure. There is trace of mitral valve regurgitation noted. There is no mitral valve stenosis. Tricuspid Valve The tricuspid valve is normal in structure. There is trace of tricuspid valve regurgitation noted. Pulmonic Valve The pulmonary valve is normal in structure. There is no pulmonic valvular regurgitation. Great Vessels The aortic root is normal in size. The IVC is normal in size and collapses >50% with inspiration. Pericardium There is no pericardial effusion. Other Information Quality : Adequate Conclusion LVEF is 40-45%. Stage I diastolic dysfunction. Abnormal GLS -11.0%. There is trace of mitral valve regurgitation noted.
--- NOTE | 2025-02-12 17:37 | HMCSR ---
APPROVED REPORT TEST INDICATIONS Chest Pain The imaging protocol used to acquire images was Rest Tc-99m/stress Tc-99m 1 day Consent: The procedure was explained and understood by the patient. Informerd consent was witnessed Knidra Galarza Jr (N)(ARRT) First, low dose rest was performed then high dose stress. RESTING DATA: The resting ekg shows: NSR, LBBB Rest SPECT myocardial perfusion imaging was performed in supine position minutes following the intra venous injection of 10 mCi of Tc-99 Sestamibi. Time of rest injection: 1118 Date: 02/12/2025 PHARMACOLOGIC STRESS: Pharmacologic stress test was performed by injecting regadenoson 0.4 mg IV push followed by the intra venous injection of 30 mCi of Tc-99 Sestamibi. Time of stress injection: 1356 Date: 02/12/2025 Heart Rate at time of stress injection: 78 bpm. The images were gated to evaluate regional wall motion and calculate left ventricular ejection fracti on. STRESS DETAILS Reason for Termination: Infusion complete Stress Symptoms: No chest pain or symptoms Max HR Achieved: 129 bpm % of APMHR Achieved: 100 Max Blood Pressure: 151/77 mmHg Stress ECG: NSR, LBBB Conclusion No ischemia Fixed septal defect consistent with infarct LV ejection fraction 41% Normal LV size at rest and stress No increased lung uptake Septal hypokinesis
[2025-02-12] MEDS: acetaMINOPHEN 325 MG TAB PO PRN (23:20)
[2025-02-13 04:33] VITALS: BP 111/69; PULSE 67; RESP 20; TEMP 97.7
[2025-02-13 08:00] VITALS: BP 124/81; PULSE 70; RESP 18; TEMP 97.9; O2SAT 97
--- NOTE | 2025-02-13 08:08 | PN ---
[facility] Cardiology Progress Note Cardiology progress note dictated for Celeste Montgomery MD Date of service 02/13/2025 Problem list: Chest pain ruled out ACS 2D echocardiogram February 12, 2025 LVEF 40-45%, grade 1 diastolic dysfunction, trace mitral regurgitation. Lexiscan Cardiolite February 12, 2025 no ischemia, fixed septal defect consistent with infarct LV ejection fraction 41% Hyperlipidemia Hypothyroidism Chronic left bundle branch block Fixed apical thinning with no reversible ischemia by Cardiolite scan in 03/2018 2D echo in 03/2018 with an EF of 50-55% Coronary calcium score of 0 in 04/2018 GERD Gastroparesis Blood work results: No blood work available this a.m. Current medications: Aspirin 81 mg daily, Pepcid 20 mg b.i.d.. Assessment/plan: 69-year-old female presented with complaints of anterior chest discomfort. She has ruled out for ACS with negative troponin x4, EKG with no acute findings. Has a history of coronary calcium score of April. She underwent testing yesterday 2D echocardiogram demonstrated left ventricular ejection fraction 40- 45% with a grade 1 diastolic dysfunction. Lexiscan Cardiolite no ischemia, fixed septal defect consistent with infarction LV ejection fraction 41%. This morning patient is up on the side of the bed without complaints no recurrence of symptoms. Blood pressure 111/69 heart rate of 67 beats per minute and regular lungs-clear to auscultation no pedal edema noted. Telemetry sinus bradycardia, sinus rhythm. She was encouraged to ambulate in the room with the assistance. Further recommendations as we continue to evaluate the patient. The patient has a fixed defect in the septum with some septal hypokinesis. This could represent a prior septal infarct. There was no reversible ischemia. The patient has a left bundle branch block which could be producing some artifact in the septum. From my standpoint she can be discharged home. There was no indication for invasive procedures at this time. She could have a CT coronary calcium score or CT coronary angiogram as an outpatient to confirm whether or not there is a prior infarct in the septum versus artifact due to left bundle branch block. She can follow up with Dr. Mott as an outpatient for further evaluation. ATTESTATION BY PHYSICIAN I have seen and examined the patient. I reviewed the documentation, medical decision making, and treatment plan as noted by the mid-level provider above. I agree with the findings and plan of care. CELESTE MONTGOMERY MD, [facility] Feb 13, 2025 08:08 CELESTE MONTGOMERY MD Feb 13, 2025 08:28
[2025-02-13 12:00] VITALS: BP 116/68; PULSE 75; RESP 17; TEMP 97.9
== END 2025-02-13 17:00 | disposition home or self-care (01) ==
LOC: EDH 20:54 → INTOOBSV 02-12 01:00 → EDHIP 02-12 01:00 → 3AH 02-12 21:40
PROVIDERS: ADMIT Internal Medicine Sleep Medicine; ATTEND Internal Medicine Sleep Medicine
DX: I20.0 Unstable angina (principal); R42 Dizziness and giddiness; E03.9 Hypothyroidism, unspecified; K21.9 Gastro-esophageal reflux disease without esophagitis; K31.84 Gastroparesis; E78.00 Pure hypercholesterolemia, unspecified; Z79.82 Long term (current) use of aspirin; Z98.890 Other specified postprocedural states; Z79.899 Other long term (current) drug therapy
CPT/HCPCS: 99285; 82550 ×3; 84484 ×4; 80048; 83880 ×2; 85025 ×2; 36415 ×2; 71045; 93005; 96360; 96361; 83036; 84443; 83735; 80061; 80053; 85651; 81003; 93017; 78452; 93306; 93356; G0378 ×36; J7030; J2785; A9500 ×2